=== PATIENT | male | born 1985 | race Caucasian/White ===

== ENCOUNTER 2024-12-18 09:02 | Emergency (ER) | payer MEDICAID, SELFPAY ==
[2024-12-18 09:03] VITALS: BMI 24.3
[2024-12-18 09:44] VITALS: BP 137/92; PULSE 90; RESP 18; TEMP 36.8; O2SAT 97; BMI 24.3
--- NOTE | 2024-12-18 10:01 | XR_ITS ---
Examination: CT abdomen with intravenous contrast CT pelvis with intravenous contrast 2-D coronal reconstructions 2-D sagittal reconstructions Date and time of exam:December 18, 2024 1206 hours Comparison February 06, 2023 INDICATIONS: Lower abdominal pain and rectal bleeding beginning today. CTDI: vol (mGy) 7.13 DLP: (mGycm) 465 Technique: Multiple axial sections of the abdomen and pelvis have been obtained. 64 slice high-resolution scanner used. 3 mm axial sections have been obtained, post intravenous injection 60 cc [id number] 2-D sagittal, coronal reconstructions obtained. Low dose protocols were performed. One or more of the following dose reduction techniques were used; automated exposure control, adjustment of the mA and/or KV according to patient size, use of iterative reconstruction technique. Findings: No focal liver or splenic lesions No gallstones No pancreatic or adrenal mass No renal or ureteral calculi, no hydronephrosis Aorta normal size Normal appendix No bowel obstruction Colonic diverticulosis, no diverticulitis Mild thickening of the rectal wall with hyperemia axial image 228 No prostatomegaly The osseous structures are intact IMPRESSION: Mild rectal wall thickening with hyperemia, likely proctitis pattern, but clinical correlation advised, recommend direct inspection
--- NOTE | 2024-12-18 10:01 | PD.EDRME ---
Rapid Medical Screening Exam RME Arrival date/time: 12/18/24 09:02 39-year-old male presents emergency department complaints of generalized abdominal pain intermittent for 1 week. reports blood in stool. I have greeted and performed a focused initial assessment of this patient. Initial appropriate labs ordered at this time. A comprehensive ED assessment and evaluation of the patient and analysis of all test and completion of medical decision making process will be conducted by additional ED provider. Chief Complaint: Nausea/Vomiting/Diarrhea Time Seen by Provider: 12/18/24 09:27 Vital signs: Vital Signs Temperature 98.3 F 12/18/24 09:44 Pulse Rate 90 12/18/24 09:44 Respiratory Rate 18 12/18/24 09:44 Blood Pressure 137/92 H 12/18/24 09:44 Pulse Oximetry (%) 97 12/18/24 09:44 Oxygen Delivery Method Room Air 12/18/24 09:44
[2024-12-18 10:17] LABS: Basophils # (Auto) 0.1 Thou/mm3 (0.0-0.2); Basophils % (Auto) 1 % (0-2.5); Eosinophils % (Auto) 0 % (0-10); Hemoglobin 17.5 g/dL (13.5-16.0); Immature Granulocytes % (Auto) 0 % (0-0); Immature Granulocytes Auto 0.02 Thou/mm3 (0.00-0.00); Lymphocytes # (Auto) 2.3 Thou/mm3 (1.0-4.8); Lymphocytes % (Auto) 23 % (10-50); Mean Corpuscular HGB Conc 36.5 g/dl (31.0-37.0); Mean Corpuscular Hemoglobin 31.5 pg (25.0-35.0); Mean Corpuscular Volume 86 fL (80-100); Monocytes # (Auto) 0.8 Thou/mm3 (0.0-0.8); Monocytes % (Auto) 8 % (0-12); Neutrophils # (Auto) 6.6 Thou/mm3 (1.8-7.7); Neutrophils % (Auto) 68 % (37-80); Nucleated Red Blood Cell % 0 /100 WBC (0); Platelet Count 209 Thou/mm3 (140-440); RDW Standard Deviation 37.7 fL (35.1-43.9); Red Blood Count 5.56 Miln/mm3 (4.50-5.90); White Blood Count 9.6 Thou/mm3 (3.8-10.6)
[2024-12-18 10:28] LABS: Partial Thromboplastin Time 27.9 Seconds (22.0-36.0)
[2024-12-18 10:36] LABS: Alanine Aminotransferase 25 U/L (10-49); Albumin, Serum 5.6 gm/dL (3.5-5.0); Albumin/Globulin Ratio 1.7 (1.2-2.2); Alkaline Phosphatase 80 U/L (46-116); Anion Gap 9 (7-16); Aspartate Amino Transferase 39 U/L (0-34); BUN/Creatinine Ratio 12 Ratio (12-20); Bilirubin,Total 0.8 mg/dL (0.3-1.2); Blood Urea Nitrogen 11 mg/dL (9-23); Calcium 10.6 mg/dL (8.3-10.6); Calcium (Corrected) 10.6 mg/dL (8.5-10.1); Carbon Dioxide 28.3 mMol/L (20.0-31.0); Chloride 102 mMol/L (98-107); Creatinine (Component) 0.9 mg/dL (0.6-1.3); Estimated Creatinine Clearance 105.6 mL/min (>60); Globulin 3.3 gm/dL (2.3-3.5); Glucose 88 mg/dL (74-106); Lipase 44 U/L (12-53); Osmolality,Calculated 275 (275-295); Potassium 4.6 mMol/L (3.4-5.1); Sodium 139 mMol/L (136-145); Total Protein 8.9 gm/dL (5.7-8.2); eGFR > 60 See Note
[2024-12-18 10:40] LABS: Collection Type, Urine Clean Catch
[2024-12-18 10:49] LABS: Bilirubin,Urine Negative (Negative); Blood,Urine Negative (Negative); Clarity,Urine Clear (Clear/Hazy); Color,Urine Yellow (Lt Yel-Yel); Glucose, Urine Negative (Negative); Ketones,Urine Negative (Negative); Leukocyte Esterase,Urine Negative (Negative); Nitrite,Urine Negative (Negative); PH,Urine 6.5 (5.0-7.0); Protein,Urine Trace (Neg - Trace); RBC,Urine 2 /hpf (0-3); Specific Gravity,Urine 1.031 (1.001-1.035); Squamous Epithelial Cell,Urine < 1 /hpf (0-5); Urobilinogen,Urine Negative mg/dL (0.0-1.0); WBC,Urine 2 /hpf (0-5)
[2024-12-18 11:25] VITALS: BP 144/95; PULSE 86; RESP 19; TEMP 36.7; O2SAT 99
[2024-12-18] MEDS: ONDANSETRON INJ 2 MG/ML INJ 2 ML 4 MG IV (12:43)
[2024-12-18] MEDS: MORPHINE SULF INJ 10 MG/ML VIAL 4 MG IVP (12:44)
[2024-12-18] MEDS: SODIUM CHLORIDE 0.9% 1000 ML 1,000 ML 999 ML IV (12:46)
--- NOTE | 2024-12-18 13:53 | PD.EDNV ---
Nausea/Vomit./Diarrhea-RME/HPI General Chief complaint: Nausea/Vomiting/Diarrhea Stated complaint: VOMITING, DIARRHEA Time Seen by Provider: 12/18/24 09:27 Arrival date/time: 12/18/24 09:02 Limitations: no limitations RME / HPI RME / HPI Narrative: 12/18/24 09:02 39-year-old male presents emergency department complaints of generalized abdominal pain intermittent for 1 week. reports blood in stool. I have greeted and performed a focused initial assessment of this patient. Initial appropriate labs ordered at this time. A comprehensive ED assessment and evaluation of the patient and analysis of all test and completion of medical decision making process will be conducted by additional ED provider. DR. QUEEN MAIN ED EVALUATION: 39 year old male presents to the ED for complaint of abdominal pain and diarrhea today. States the abdominal pain began last night that initially was located to the epigastric region and now located diffusely; described as cramping in sensation, rating as moderate-severe that lasts a few seconds before resolving. Accompanied by nausea, nonbloody vomiting x1, ~ 15 bouts of diarrhea throughout the night, a raw pain to rectum, and small amount of blood present while wiping. Although states he does have history of hemorrhoids and feels that is attributing to the bleeding. Patient states he took 3 Tums last night without change. Patient reports long standing history of untreated heart burn. Admits to drinking alcohol socially and last drank 6 days ago. No other associated symptoms reported. Denies fevers, chills, sweats, chest pain, cough, shortness of breath, or urinary symptoms. Related Data Previous Rx's ?Medication ?Instructions ?Recorded Hydrocodone/Acetaminophen * (NORCO 1 tab PO Q6H PRN pain #30 tabs 02/06/16 10/325 *) cephalexin 500 mg capsule 500 mg PO QID #30 caps 12/18/24 hydrocortisone acetate 25 mg 25 mg IN BID #24 ea 12/18/24 rectal suppository (Anucort-HC) omeprazole 40 mg capsule,delayed 40 mg PO QDAY #60 caps 12/18/24 release Allergies Allergy/AdvReac Type Severity Reaction Status Date / Time NKA* Allergy Uncoded 12/18/24 09:05 Review of Systems Review of Systems Narrative Review of Systems: GEN: No fever, no chills, no weight loss EYES: No discharge, no visual changes, no pain HEENT: No ear pain, no congestion, no sore throat PULM: No shortness of breath, no cough, no congestion CV: No chest pain, no dyspnea on exertion, no palpitations GI: + nausea, + vomiting, no diarrhea, + pain, no constipation, +rectal pain : No frequency, no urgency, no dysuria MUSC/SKEL: No joint pain, no back pain SKIN: No rash PSYCH: No hallucinations, no depression HEME/LYMPH: No easy bleeding or bruising tendencies NEURO: No weakness, no headache Past Medical History Past Medical History GASTROINTESTINAL: Positive Gastrointestinal Disorders and Ulcerative Colitis (Per pt possible dx 2 years ago) OTHER HISTORY: Positive Chicken Pox Social History SMOKING STATUS: Never smoker ED Exam General Limitations: Present no limitations General appearance: Present alert and anxious Head Head exam: Present atraumatic, normocephalic and normal inspection Eye Eye exam: Present normal appearance, PERRL and EOMI ENT ENT exam: Present normal exam, normal oropharynx and mucous membranes moist Neck Neck exam: Present normal inspection, full ROM and trachea midline Chest Chest inspection: Present normal inspection and symmetric chest wall rise Respiratory Respiratory exam: Present normal lung sounds bilaterally Cardiovascular Cardiovascular exam: Present regular rate, normal rhythm and normal heart sounds Abdominal Exam Abdominal exam: Present soft, tenderness (mid epigastric region) and normal bowel sounds Extremities Exam Extremities exam: Present normal inspection and full ROM Back Exam Back exam: Present normal inspection and full ROM Neurological Exam Neurological exam: Present alert, oriented X3 and CN II-XII intact Psychiatric Psychiatric exam: Present normal affect and normal mood Skin Skin exam: Present warm, dry, intact and normal color Course Quality Measures none Orders Category Date Time Status CT Screening NOW Care 12/18/24 10:01 Completed NPO STAT Care 12/18/24 09:49 Completed Occult Blood,Stool (Nursing) NOW Care 12/18/24 10:[address] abdomen pelvis w con Stat Exams 12/18/24 10:01 Completed CBC Stat Lab 12/18/24 10:02 Completed Comprehensive Metabolic Panel Stat Lab 12/18/24 10:02 Completed Lipase Stat Lab 12/18/24 10:02 Completed Partial Thromboplastin Time Stat Lab 12/18/24 10:02 Completed Urinalysis Stat Lab 12/18/24 10:21 Completed Hydrocortisone Acet [Anusol Supp] Med 12/18/24 13:19 Discontinued 50 mg IN X1 ONE Morphine Inj Med 12/18/24 12:08 Discontinued 4 mg IVP X1 ONE Ondansetron Inj [Zofran Inj] Med 12/18/24 12:08 Discontinued 4 mg IV X1 ONE Pantoprazole Inj [Protonix Inj] Med 12/18/24 13:19 Discontinued 40 mg IVP X1 ONE Sodium Chloride 0.9% 1000 ml [Ns] 1,000 ml Med 12/18/24 12:08 Discontinued IV 999 mls/hr Reevaluation(s) Reevaluation #1: Patient remains clinically stable throughout the emergency department visit. We reviewed all the results, analysis, and treatment plans. Patient is amenable to discharge. Strict return precautions were outlined. Patient was discharged in stable condition. Time: 15:00 Vital Signs Vital signs: Vital Signs Temperature 98.3 F 12/18/24 09:44 Pulse Rate 90 12/18/24 09:44 Respiratory Rate 18 12/18/24 09:44 Blood Pressure 137/92 H 12/18/24 09:44 Pulse Oximetry (%) 97 12/18/24 09:44 Oxygen Delivery Method Room Air 12/18/24 09:44 Pulse ox is 97% on room air which is adequate. Nausea/Vomiting/Diarrhea MDM Narrative MDM Narrative:: Mehreen Shelton am scribing for and in the presence of Dr. Queen. 39 year old male presenting with abdominal pain and diarrhea, which began last night and has progressively become more diffuse in nature. The pain is described as cramping and moderate to severe in intensity, with accompanying nausea, vomiting, and diarrhea. The patient reports a small amount of blood noted while wiping, which he attributes to his long-standing history of hemorrhoids. Given the lack of fever, chills, or significant systemic symptoms, the most likely diagnosis is a gastroenteritis, possibly viral or related to his history of untreated heartburn. The blood in the stool is likely hemorrhoidal in origin, though further evaluation is warranted to rule out other causes such as gastrointestinal bleeding. The patient was given supportive care, including hydration, and advised to follow up for further evaluation if symptoms persist or worsen. The patient was also encouraged to address his ongoing heartburn, potentially with further gastroenterology evaluation. Patient data External records reviewed:: [facility] previous records (I reviewed ED visit on 02/06/2023 ) Clinical information provided by:: patient Social determinants that could affect healthcare access:: alcohol use Patient has the following chronic illnesses:: Gastritis, GERD How is presenting disease/condition affected by chronic disease/condition?: exacerbated by Evaluation data The following diagnostics were reviewed and interpreted by me:: lab results and radiology exam(s) Lab and/or radiology exams considered but not ordered:: None Interpretation Summary: [facility]ing Phys[facility] Date of Service: 12/18/24 Procedure(s): CT abdomen pelvis w con Accession Number(s): [id number] cc: Angus Fenton PA-C; Palmer Badillo MD; [facility] Simons~ Examination: CT abdomen with intravenous contrast CT pelvis with intravenous contrast 2-D coronal reconstructions 2-D sagittal reconstructions Date and time of exam:December 18, 2024 1206 hours Comparison February 06, 2023 INDICATIONS: Lower abdominal pain and rectal bleeding beginning today. CTDI: vol (mGy) 7.13 DLP: (mGycm) 465 Technique: Multiple axial sections of the abdomen and pelvis have been obtained. 64 slice high-resolution scanner used. 3 mm axial sections have been obtained, post intravenous injection 60 cc [id number] 2-D sagittal, coronal reconstructions obtained. Low dose protocols were performed. One or more of the following dose reduction techniques were used; automated exposure control, adjustment of the mA and/or KV according to patient size, use of iterative reconstruction technique. Findings: No focal liver or splenic lesions No gallstones No pancreatic or adrenal mass No renal or ureteral calculi, no hydronephrosis Aorta normal size Normal appendix No bowel obstruction Colonic diverticulosis, no diverticulitis Mild thickening of the rectal wall with hyperemia axial image 228 No prostatomegaly The osseous structures are intact IMPRESSION: Mild rectal wall thickening with hyperemia, likely proctitis pattern, but clinical correlation advised, recommend direct inspection Dictated By: Palmer Badillo MD Signed By: <Electronically signed by Palmer Badillo MD in OV> 12/18/24 1239 Medications / Prescriptions Medications / Prescriptions considered but not ordered:: None Medication administrations:: Medication Administration History Discontinued Medications Hydrocortisone Acetate (Hydrocortisone Acet 25 Mg Supp) 50 mg IN X1 ONE Stop: 12/18/24 13:20 Last Admin: 12/18/24 14:23 Dose: 50 mg Documented By: HILARY Sodium Chloride (Ns) 1,000 mls @ 999 mls/hr IV .Q1H1M ONE Stop: 12/18/24 13:08 Last Infusion: 12/18/24 14:00 Dose: Infused Documented By: Admin: 12/18/24 12:46 Dose: 999 mls/hr Documented By: HILARY Morphine Sulfate (Morphine Sulf Inj 10 Mg/Ml Vial) 4 mg IVP X1 ONE Stop: 12/18/24 12:09 Last Admin: 12/18/24 12:44 Dose: 4 mg Documented By: HILARY Ondansetron HCl (Ondansetron Inj 2 Mg/Ml Inj 2 Ml) 4 mg IV X1 ONE; Protocol Stop: 12/18/24 12:09 Last Admin: 12/18/24 12:43 Dose: 4 mg Documented By: HILARY Pantoprazole Sodium (Pantoprazole Inj 40 Mg Vial) 40 mg IVP X1 ONE Stop: 12/18/24 13:20 Last Admin: 12/18/24 14:11 Dose: 40 mg Documented By: HILARY See above Consultations Consultation(s) initiated? (list below): No Diagnosis Nausea Differential Diagnosis: food poisoning, gastroenteritis, drug-induced nausea and vomiting and dehydration Most likely diagnosis given after review of the tests above:: Proctitis GERD Gastritis Admission Indicated Admission indicated?: not indicated Explain why admission is indicated or not indicated:: Does not meet admission criteria Admission Request Was there a request for admission?: No Disposition Plan Disposition Plan: Discharge Discharge Attestation Discharge Attestation: The patient and all family members were given an opportunity to ask questions and understood the discharge instructions. Discharge instructions specifically effects, indications for sooner follow up or return to the emergency department, and the expected course of current diagnosis. Patient condition: Stable Discharge Plan Plan Patient Disposition: HOME (Self Care) Prescriptions/Referrals Prescriptions/Med Rec: New omeprazole 40 mg capsule,delayed release(DR/EC) 40 mg PO QDAY Qty: 60 0RF hydrocortisone acetate [Anucort-HC] 25 mg suppository 25 mg IN BID Qty: 24 0RF cephalexin 500 mg capsule 500 mg PO QID Qty: 30 0RF No Action Hydrocodone/Acetaminophen * (NORCO 10/325 *) 1 TAB tablet 1 tab PO Q6H PRN (Reason: pain) Qty: 30 0RF Referrals: Angus Fenton PA-C [Primary Care Provider] - In 1 week Problem List Clinical Impression: Proctitis, Gastritis, GERD (gastroesophageal reflux disease) Patient/Caregiver Discharge Instructions Education Materials: Tips to Control Acid Reflux, ED GERD (Adult), ED Gastritis (Adult) Additional Instructions: Follow up with your doctor as soon as possible for referral to GI specialist. Return if your develop any new or worsening symptoms. Print Language: Spanish Stand Alone Forms: [employer] Award Info., Patient Portal Info Letter
[2024-12-18] MEDS: PANTOPRAZOLE INJ 40 MG VIAL IVP (14:11)
[2024-12-18] MEDS: HYDROCORTISONE ACET 25 MG SUPP 50 MG PR (14:23)
[2024-12-18 14:49] VITALS: BP 136/95; PULSE 74; RESP 15; TEMP 36.9; O2SAT 96
[2024-12-18 16:12] VITALS: BP 128/86; PULSE 60; RESP 18; TEMP 36.6; O2SAT 100
== END 2024-12-18 16:12 | disposition home or self-care (01) ==
PROVIDERS: Nurse Practitioner Primary Care; Emergency Provider Family Medicine; PCP Physician Assistant
DX: K29.70 Gastritis, unspecified, without bleeding (principal); K21.9 Gastro-esophageal reflux disease without esophagitis; K62.89 Other specified diseases of anus and rectum
CPT/HCPCS: 36415; 74177; 80053; 81001; 83690; 85025; 85730; 96361; 96374; 96375; 99285; A4649; J2270; J2405; J2470; J7030; Q9967; A9270

== ENCOUNTER → 2025-03-03 | Outpatient (CLI) | payer MEDICAID, SELFPAY ==
--- NOTE | 2025-03-03 10:30 | XR_ITS ---
Examination: Abdomen sonogram, complete Date and time of exam: March 03, 2025 1036 hours INDICATIONS: Epigastric pain beginning 3 years ago. Technique: Multiple real-time grayscale transabdominal sonographic images of the abdomen have been obtained. Findings: Negative for gallstones Gallbladder wall 0.44 cm no edema Common bile duct 0.4 cm Pancreatic head 2.3 cm Aorta not enlarged Liver 13.3 cm fatty infiltration Normal hepatopedal portal venous flow Patent IVC Right kidney 9.5 cm cortex 2.1 cm Left kidney 12.2 cm cortex 2.2 cm Mild renal parenchymal scar formation Spleen 10.5 cm IMPRESSION: Thickened gallbladder wall 0.44 cm, consider HIDA scan follow-up
== END | disposition home or self-care (01) ==
PROVIDERS: Referring Provider Nurse Practitioner Family; Visit Provider Nurse Practitioner Family
DX: K76.0 Fatty (change of) liver, not elsewhere classified (principal); N28.89 Other specified disorders of kidney and ureter
CPT/HCPCS: 76700